=== PATIENT | male | born 1965 | race Two or more races ===

== ENCOUNTER → 2017-06-30 | Outpatient (CLI) | payer BC ==
--- NOTE | 2017-07-01 17:54 | US ---
EXAMINATION TYPE: US extremity nonvasc complt RT DATE OF EXAM: 06/30/2017 COMPARISON: NONE CLINICAL HISTORY: Pain in R foot M79.671. Pt states pain and swelling at the level of the 2nd MTP chidi nt, no known trauma, no prior imaging, no history of gout that he is aware of. Scanned over the patient's area of concern. There is hypoechoic vascularity tissue situated anterior ly over the 2nd MTP joint that is not present anterior to the other MTP joints ?inflammation v other. Findings could be related to juxta-articular inflammatory change. IMPRESSION: 1. There may be some minimal inflammatory change adjacent to the second metatarsophalangeal joint spa ce are not present elsewhere. Consider inflammatory arthritis. Injury could be considered. Infection would be unlikely. 2. Plain film correlation is recommended.
== END | disposition home or self-care (01) ==
LOC: RADUSWWP 13:41
PROVIDERS: ATTEND Family Medicine
DX: M79.671 Pain in right foot (principal)

== ENCOUNTER 2019-02-17 07:51 | Day surgery (SDC) | payer BC ==
[2019-02-15 10:12] VITALS: BMI 24.7
[2019-02-17 08:09] VITALS: TEMP 97.8
[2019-02-17] MEDS ORDERED: LACTATED RINGERS 1,000 ML IV ONE (08:09)
[2019-02-17] MEDS ORDERED: LIDOCAINE 1% 20 ML VIAL (10MG/ML) FOR IV START INTRADERMA ONE (08:09)
[2019-02-17] MEDS ORDERED: PROPOFOL 10 MG/ML 20 ML VIAL IV ONE (09:03)
[2019-02-17 09:34] VITALS: RESP 16
--- NOTE | 2019-02-17 09:38 | P.PCN ---
Date of Procedure: 02/17/19 Procedure(s) Performed: BRIEF HISTORY: Patient is a 53-year-old pleasant male scheduled for an elective colonoscopy as a part of screening for colorectal neoplasia. PROCEDURE PERFORMED: Colonoscopy. PREOPERATIVE DIAGNOSIS: Screening for colon cancer. IV sedation per Anesthesia. PROCEDURE: After informed consent was obtained, the patient, was brought into the endoscopy unit. IV sedation was administered by Anesthesia under continuous monitoring. Digital rectal examination was normal. Initially the Olympus CF-160 flexible video colonoscope was then inserted in the rectum, gradually advanced into the cecum without any difficulty. Careful examination was performed as the scope was gradually being withdrawn. Ileocecal valve and the appendiceal orifice were visualized and appeared normal. Prep was excellent. Mucosa of the cecum, ascending colon, transverse colon, descending colon, sigmoid colon, and rectum appeared normal. Retroflexion was performed in the rectum and small internal hemorrhoids were seen. The patient tolerated the procedure well. IMPRESSION: Normal-appearing colon from rectum to cecum with no evidence of colorectal neoplasia . Small internal hemorrhoids. RECOMMENDATIONS: Findings of this examination were discussed with the patient as well as his family. He was advised to have a repeat screening colonoscopy in 10 years.
[2019-02-17 09:47] VITALS: BP 121/80; PULSE 88
== END 2019-02-17 09:59 | disposition home or self-care (01) ==
LOC: ORWHC2ENDO 07:51
PROVIDERS: ATTEND Internal Medicine Gastroenterology
DX: Z12.11 Encounter for screening for malignant neoplasm of colon (principal); K64.8 Other hemorrhoids
CPT/HCPCS: J2704; G0121

== ENCOUNTER → 2020-06-10 | Outpatient (CLI) | payer BC ==
--- NOTE | 2020-06-11 02:30 | MR ---
EXAMINATION TYPE: MR brain wo/w [place] wo DATE OF EXAM: 06/10/2020 COMPARISON: None HISTORY: Numbness of right shoulder to finger tips. TECHNIQUE: Multiplanar, multisequence images of the brain and brainstem is performed without and with IV contras t, utilizing 7 mL intravenous Gadavist . Cervical spine also imaged. FINDINGS: The cervical vertebra have normal alignment. There is slight narrowing of the disc spaces a t C6-7 and C7-T1. There is small posterior minimal disc bulging at C5-6. There is developmentally geena quate spinal canal and no spinal stenosis. Cervical spinal cord has fairly normal signal pattern. The re is no edema. There is no evidence of cervical paraspinal mass. There is no cervical compression fr acture. Posterior elements are intact. There is uncovertebral spurring and disc herniation on the right side at C6-7 with neural foraminal i mpingement. This could be significant in this patient with right side pain. Diffusion images show no evidence of cortical infarct. Ventricles have fairly normal size. There is n o mass effect nor midline shift. There is no sign of intracranial hemorrhage. There are a few scatter ed white matter small high signal foci on the T2 and FLAIR images at the salazar-white matter junction o f both cerebral hemispheres. Total number is approximately 5 and these measure up to 4 mm. The contrast images show no pathologic enhancement. There is normal enhancement of the venous sinuses . Sella turcica appears normal. Corpus callosum is intact. IMPRESSION: Degenerative disc changes in the lower cervical spine with a right side C6-7 disc herniation and neur al foraminal impingement.
== END | disposition home or self-care (01) ==
LOC: RADMRIMAIN 17:46
PROVIDERS: ATTEND Family Medicine
DX: M50.223 Other cervical disc displacement at C6-C7 level (principal); M50.323 Other cervical disc degeneration at C6-C7 level
CPT/HCPCS: 70553; 72141; A9585

== ENCOUNTER → 2023-08-23 | Outpatient (CLI) | payer BC ==
--- NOTE | 2023-08-25 05:45 | MR ---
EXAMINATION TYPE: MR knee LT wo con DATE OF EXAM: 08/23/2023 COMPARISON: Outside left knee x-ray August 04, 2023 HISTORY: Left knee pain, swelling and unable to bend sometimes TECHNIQUE: Multiplanar, multisequence images of the knee is performed without IV contrast. FINDINGS: MEDIAL MENISCUS: Fraying and increased signal posterior horn medial meniscus. Areas of extension to a rticular surface are likely present. LATERAL MENISCUS: Anterior and posterior horns are intact without tear. CRUCIATE LIGAMENTS: The anterior and posterior cruciate ligaments are intact and unremarkable. COLLATERAL LIGAMENTS: The medial collateral ligament and lateral collateral ligament complex are inta ct and unremarkable. Increased signal distal quadriceps tendon. EXTENSOR MECHANISM: Visualized quadriceps and patellar tendons are intact. EFFUSION: Small size suprapatellar joint effusion. POPLITEAL CYST: Multi septated moderate to large size popliteal/encinas cyst. TRICOMPARTMENT SPACES: Mild tricompartment joint space loss and spurring. CARTILAGE: Tricompartmental articular cartilage is preserved. BONE MARROW SIGNAL: No focal abnormal marrow signal is appreciated. OTHER: Mild to moderate ill-defined fluid in the superficial infrapatellar level. IMPRESSION: 1. At least intrasubstance but suspected subtle full-thickness tear posterior horn of medial meniscus . 2. Small sized suprapatellar joint effusion. 3. Moderate to large sized septated popliteal cyst. 4. Mild tricompartment degenerative changes are present. 5. Partial tearing/tendinosis of the distal quadriceps tendon.
== END | disposition home or self-care (01) ==
LOC: RADMRIMAIN 19:18
PROVIDERS: ATTEND Orthopaedic Surgery
DX: S83.242A Other tear of medial meniscus, current injury, left knee, initial encounter (principal); M25.462 Effusion, left knee; M17.12 Unilateral primary osteoarthritis, left knee